=== PATIENT | female | born 1940 | race Caucasian/White ===

== ENCOUNTER 2022-10-14 17:30 | Emergency (ER) | payer OTHER ==
[~2022-10-14] VITALS: Ht 170.2 cm; Wt 70.3 kg
[~2022-10-14 17:30] MED LIST: ASCO500 PO; ASPI325 PO; ASPI325EC PO; ASPI81EC PO; CALCA500CH PO; CHOL10002 PO; CYCL10 PO; ENOX40I SC; FENO54 PO; FISH1000 PO; FOLI1 PO; FOLI400 PO; Fenofibrate54 MG PO; GABA300 PO; GABA600 PO; IBUP400 PO; IRON PO; LEVSOD112 PO; LOFIBRA PO; META800 PO; Multi-Day Vita1 EACH PO; OXYACE5T PO; OXYC10ER PO; OXYC10TA19 PO; OXYC5 PO; PROACE100 PO; ROPI1 PO; SUCR1 PO; Slo-Niacin250 MG PO; Synthroid/Levo0.1 MG PO; Synthroid112 MCG PO; TUMERIC PO; VALA500 PO; VIACTIV SOFT C1 EAC1 PO; VITAMIN D-32000 UNIT PO; Valtrex1000 MG PO; ZINC PO; ZINC15 PO
== END 2022-10-14 18:11 | disposition home or self-care (01) ==
LOC: ER 17:30
DX: R53.1 Weakness (principal); Z88.8 Allergy status to other drugs, medicaments and biological substances; Z79.82 Long term (current) use of aspirin; Z79.890 Hormone replacement therapy; Z79.899 Other long term (current) drug therapy
CPT/HCPCS: 99282

== ENCOUNTER 2022-12-01 11:56 | Emergency (ER) | payer OTHER ==
[~2022-12-01] VITALS: Ht 175.3 cm; Wt 69.0 kg
[2022-12-01 15:00] VITALS: BP 134/70
== END 2022-12-01 15:32 | disposition home or self-care (01) ==
LOC: ER 11:56
DX: S20.212A Contusion of left front wall of thorax, initial encounter (principal); W22.8XXA Striking against or struck by other objects, initial encounter; E03.9 Hypothyroidism, unspecified; Z88.8 Allergy status to other drugs, medicaments and biological substances; Z79.899 Other long term (current) drug therapy; Z79.82 Long term (current) use of aspirin
CPT/HCPCS: 71101; A9270

== ENCOUNTER 2024-01-22 09:59 | Emergency (ER) | payer OTHER ==
[~2024-01-22] VITALS: Ht 180.3 cm; Wt 68.0 kg
[~2024-01-22 09:59] MED LIST changes: +Mupirocin22 GM TOP
[2024-01-22 13:51] LABS: BASOPHILS ABSOLUTE AUTO 0.05 K/mm3 (0.00-0.23); BASOPHILS PERCENT AUTO 1 % (0-2); EOSINOPHILS ABSOLUTE AUTO 0.16 K/mm3 (0.00-0.68); EOSINOPHILS PERCENT AUTO 2 % (0-6); Hematocrit 43.7 % (33.0-51.0); Hemoglobin 14.9 g/dL (11.5-16.0); IMMATURE GRAN ABSOLUTE AUTO 0.02 K/mm3 (0.00-0.10); IMMATURE GRAN PERCENT AUTO 0 % (0-1); LYMPHOCYTES ABSOLUTE AUTO 1.13 K/mm3 (0.84-5.20); LYMPHOCYTES PERCENT AUTO 16 % (21-46); MONOCYTES ABSOLUTE AUTO 0.57 K/mm3 (0.16-1.47); MONOCYTES PERCENT AUTO 8 % (4-13); Mean Corpuscular HGB 30.8 pg (26.0-34.0); Mean Corpuscular HGB Conc 34.1 g/dL (31.5-36.5); Mean Corpuscular Volume 90 fL (80-100); Mean Platelet Volume 9.2 fL (9.1-12.4); NEUTROPHILS PERCENT AUTO 73 % (41-73); Platelet Count 241 K/mm3 (150-400); RDW Coefficient Variation 14.6 % (11.7-14.2); RDW Standard Deviation 48.9 fL (35.1-46.3); Red Blood Cell Count 4.84 M/mm3 (3.80-5.20); White Blood Cell Count 7.23 K/mm3 (4.00-11.30)
[2024-01-22] MEDS ORDERED: XARELTO15 MG PO (14:21)
[2024-01-22 14:37] VITALS: BP 191/77
== END 2024-01-22 14:38 | disposition home or self-care (01) ==
LOC: ER 09:59
PROVIDERS: Nurse Practitioner
DX: I82.811 Embolism and thrombosis of superficial veins of right lower extremity (principal); Z88.8 Allergy status to other drugs, medicaments and biological substances; Z79.899 Other long term (current) drug therapy; Z79.82 Long term (current) use of aspirin; K21.9 Gastro-esophageal reflux disease without esophagitis; E03.9 Hypothyroidism, unspecified
CPT/HCPCS: 85025; 93971; 99284-25

== ENCOUNTER 2025-06-30 10:01 | Emergency (ER) | payer OTHER ==
[~2025-06-30] VITALS: Ht 157.5 cm; Wt 72.6 kg
[~2025-06-30 10:01] MED LIST changes: +XARELTO15 MG PO
[2025-06-30 10:11] VITALS: BP 155/90
== END 2025-06-30 11:17 | disposition home or self-care (01) ==
LOC: ER 10:01
DX: M25.552 Pain in left hip (principal); K21.9 Gastro-esophageal reflux disease without esophagitis; E03.9 Hypothyroidism, unspecified; Z79.899 Other long term (current) drug therapy; Z88.8 Allergy status to other drugs, medicaments and biological substances
CPT/HCPCS: 73502; 99283-25